=== PATIENT | male | born 1960 | race Caucasian/White ===

== ENCOUNTER 2023-01-11 16:47 | Inpatient (IN) | payer MEDICARE, OTHER ==
[~2023-01-11] VITALS: Ht 180 cm; Wt 79.8 kg
[~2023-01-11 16:47] MED LIST: ATEN25TA PO; ATOR20TA PO; GABA-532 PO; OMEP20CA15 PO
[2023-01-11 22:10] VITALS: BP 118/76; TEMP 98.4
[2023-01-11] MEDS ORDERED: MAGNESIUM HYDROXIDE 30 ML UDC PO PRN (22:30)
[2023-01-11] MEDS ORDERED: MAG HYDROX/AL HYDROX/SIMETH 30 ML UDC PO PRN (22:30)
[2023-01-11] MEDS ORDERED: LORAZEPAM 0.5 MG TABLET PO PRN (22:30)
[2023-01-11] MEDS ORDERED: ACETAMINOPHEN 325 MG TABLET PO PRN (22:30)
[2023-01-11] MEDS ORDERED: BLOOD SUGAR DIAGNOSTIC 1 EACH STRIP IN ONE (22:30)
[2023-01-12 07:40] LABS: ALBUMIN 3.1 g/dL (3.4-5.0); BILIRUBIN,TOTAL 0.4 mg/dL (0.2-1.0); CALCIUM, SERUM 8.8 mg/dL (8.5-10.1); CREATININE 0.9 mg/dL (0.6-1.3); POTASSIUM 3.6 mmol/L (3.5-5.1); TOTAL PROTEIN, SERUM 6.1 g/dL (6.4-8.2)
[2023-01-12 08:00] VITALS: BP 126/86; TEMP 97.9; O2SAT 96
[2023-01-12] MEDS ORDERED: OLAN20TA3 PO (08:05)
[2023-01-12] MEDS ORDERED: SILD20TA2 PO (08:05)
[2023-01-12] MEDS ORDERED: FLUT16SP (08:05)
[2023-01-12] MEDS ORDERED: DOCU-141 PO (08:05)
[2023-01-12] MEDS ORDERED: SERT50TA PO (08:05)
[2023-01-12] MEDS: LITHIUM CARBONATE (300 MG CAP) 300 MG CAPSULE PO SCH ×2 (11:16→16:11)
[2023-01-12] MEDS: SERTRALINE HCL 50 MG TABLET PO SCH (11:16)
[2023-01-12] MEDS ORDERED: FLUTICASONE PROPIONATE 16 GM BOTTLE NS PRN (13:30)
[2023-01-12 16:00] VITALS: BP 118/66; TEMP 97.5; O2SAT 98
[2023-01-12] MEDS: DOCUSATE SODIUM 100 MG CAPSULE PO PRN (16:11)
[2023-01-12 20:36] VITALS: BP 104/65; TEMP 98.1; O2SAT 97
[2023-01-12] MEDS: OLANZAPINE 10 MG TABLET PO SCH (21:07)
[2023-01-13 08:00] VITALS: BP 125/84; TEMP 97.9; O2SAT 96
[2023-01-13] MEDS: ATORVASTATIN 10 MG TABLET PO SCH (08:37)
[2023-01-13] MEDS: LITHIUM CARBONATE (300 MG CAP) 300 MG CAPSULE PO SCH ×2 (08:37→16:24)
[2023-01-13] MEDS: PANTOPRAZOLE 40 MG TABLET.DR PO SCH (08:37)
[2023-01-13] MEDS: SERTRALINE HCL 50 MG TABLET PO SCH (08:37)
[2023-01-13] MEDS: ATENOLOL 25 MG TABLET PO SCH (08:37)
[2023-01-13 16:00] VITALS: BP 95/64; TEMP 98; O2SAT 95
[2023-01-13 20:00] VITALS: BP 114/77; TEMP 98.4; O2SAT 97
[2023-01-13] MEDS: OLANZAPINE 10 MG TABLET PO SCH (21:12)
[2023-01-13] MEDS: ZOLPIDEM TARTRATE 5 MG TABLET PO PRN (21:33)
[2023-01-14 08:00] VITALS: BP 140/85; TEMP 98.6; O2SAT 94
[2023-01-14] MEDS: SERTRALINE HCL 50 MG TABLET PO SCH (08:37)
[2023-01-14] MEDS: LITHIUM CARBONATE (300 MG CAP) 300 MG CAPSULE PO SCH ×2 (08:39→16:23)
[2023-01-14] MEDS: ATORVASTATIN 10 MG TABLET PO SCH (08:39)
[2023-01-14] MEDS: ATENOLOL 25 MG TABLET PO SCH (08:39)
[2023-01-14] MEDS: PANTOPRAZOLE 40 MG TABLET.DR PO SCH (08:39)
[2023-01-14 16:00] VITALS: BP 111/75; TEMP 97.5; O2SAT 96
[2023-01-14 20:00] VITALS: BP 138/81; TEMP 98.3; O2SAT 95
[2023-01-14] MEDS: OLANZAPINE 10 MG TABLET PO SCH (21:36)
[2023-01-14] MEDS: ZOLPIDEM TARTRATE 5 MG TABLET PO PRN (22:45)
[2023-01-15 08:00] VITALS: BP 114/82; TEMP 98; O2SAT 95
[2023-01-15] MEDS: LITHIUM CARBONATE (300 MG CAP) 300 MG CAPSULE PO SCH ×2 (09:01→16:13)
[2023-01-15] MEDS: PANTOPRAZOLE 40 MG TABLET.DR PO SCH (09:02)
[2023-01-15] MEDS: SERTRALINE HCL 50 MG TABLET PO SCH (09:02)
[2023-01-15] MEDS: ATORVASTATIN 10 MG TABLET PO SCH (09:02)
[2023-01-15] MEDS: ATENOLOL 25 MG TABLET PO SCH (09:02)
[2023-01-15] MEDS: DOCUSATE SODIUM 100 MG CAPSULE PO PRN (09:02)
[2023-01-15] MEDS: OFLOXACIN 0.3% OPHTH 5 ML BOTTLE RIGHTEYE SCH ×3 (12:00→20:00)
[2023-01-15 16:00] VITALS: BP 106/63; TEMP 98.2; O2SAT 98
[2023-01-15 20:09] VITALS: BP 100/64; TEMP 98.2; O2SAT 96
[2023-01-15] MEDS: OLANZAPINE 10 MG TABLET PO SCH (21:22)
[2023-01-16] MEDS: OFLOXACIN 0.3% OPHTH 5 ML BOTTLE RIGHTEYE SCH ×3 (04:00→08:00)
[2023-01-16 08:00] VITALS: BP 105/71; TEMP 97.9; O2SAT 95
[2023-01-16] MEDS: LITHIUM CARBONATE (300 MG CAP) 300 MG CAPSULE PO SCH ×2 (08:15→17:32)
[2023-01-16] MEDS: PANTOPRAZOLE 40 MG TABLET.DR PO SCH (08:15)
[2023-01-16] MEDS: DOCUSATE SODIUM 100 MG CAPSULE PO PRN (08:22)
[2023-01-16] MEDS: SERTRALINE HCL 50 MG TABLET PO SCH (08:22)
[2023-01-16] MEDS: ATORVASTATIN 10 MG TABLET PO SCH (08:22)
[2023-01-16] MEDS: ATENOLOL 25 MG TABLET PO SCH (08:23)
[2023-01-16] MEDS ORDERED: NEO/POLY-B/DEXAM OPHTH SUSP 5 ML BOTTLE RIGHTEYE SCH (10:00)
[2023-01-16] MEDS: NEO/POLY/DEXA OPHTH OINT 3.5 GM TUBE RIGHTEYE SCH ×2 (13:25→17:32)
[2023-01-16 16:00] VITALS: BP 110/72; TEMP 98.1; O2SAT 99
[2023-01-16 20:00] VITALS: BP 100/64; TEMP 98.2; O2SAT 96
[2023-01-16] MEDS: OLANZAPINE 10 MG TABLET PO SCH (21:08)
[2023-01-16] MEDS: ZOLPIDEM TARTRATE 5 MG TABLET PO PRN (22:43)
[2023-01-17] MEDS: NEO/POLY/DEXA OPHTH OINT 3.5 GM TUBE RIGHTEYE SCH ×4 (00:43→17:34)
[2023-01-17 08:00] VITALS: BP 134/87; TEMP 97.9; O2SAT 99
[2023-01-17] MEDS: PANTOPRAZOLE 40 MG TABLET.DR PO SCH (08:14)
[2023-01-17] MEDS: SERTRALINE HCL 50 MG TABLET PO SCH (08:14)
[2023-01-17] MEDS: LITHIUM CARBONATE (300 MG CAP) 300 MG CAPSULE PO SCH ×2 (08:14→17:25)
[2023-01-17] MEDS: ATORVASTATIN 10 MG TABLET PO SCH (08:14)
[2023-01-17] MEDS: ATENOLOL 25 MG TABLET PO SCH (08:15)
[2023-01-17 16:00] VITALS: BP 106/74; TEMP 97.9; O2SAT 98
[2023-01-17 20:41] VITALS: BP 99/68; TEMP 98.1; O2SAT 96
[2023-01-17] MEDS: OLANZAPINE 10 MG TABLET PO SCH (21:12)
[2023-01-17] MEDS: ZOLPIDEM TARTRATE 5 MG TABLET PO PRN (21:13)
[2023-01-18] MEDS: NEO/POLY/DEXA OPHTH OINT 3.5 GM TUBE RIGHTEYE SCH ×3 (00:30→12:25)
[2023-01-18 08:00] VITALS: BP 125/90; TEMP 97.8; O2SAT 99
[2023-01-18] MEDS: LITHIUM CARBONATE (300 MG CAP) 300 MG CAPSULE PO SCH ×2 (08:15→16:23)
[2023-01-18] MEDS: ATORVASTATIN 10 MG TABLET PO SCH (08:15)
[2023-01-18] MEDS: SERTRALINE HCL 50 MG TABLET PO SCH (08:15)
[2023-01-18] MEDS: PANTOPRAZOLE 40 MG TABLET.DR PO SCH (08:15)
[2023-01-18] MEDS: ATENOLOL 25 MG TABLET PO SCH (08:16)
[2023-01-18 16:06] VITALS: BP 104/70; TEMP 98; O2SAT 95
== END 2023-01-18 17:15 | disposition home or self-care (01) | DRG 885 ==
LOC: GPS 21:54
PROVIDERS: ADMIT Psychiatry & Neurology Psychiatry; ATTEND Nurse Practitioner Acute Care
DX: F25.0 Schizoaffective disorder, bipolar type (principal); R45.851 Suicidal ideations; E44.1 Mild protein-calorie malnutrition; F29 Unspecified psychosis not due to a substance or known physiological condition; J44.9 Chronic obstructive pulmonary disease, unspecified; I10 Essential (primary) hypertension; F03.90 Unspecified dementia, unspecified severity, without behavioral disturbance, psychotic disturbance, mood disturbance, and anxiety; F60.9 Personality disorder, unspecified; Z79.899 Other long term (current) drug therapy; E78.5 Hyperlipidemia, unspecified; E88.09 Other disorders of plasma-protein metabolism, not elsewhere classified; R73.9 Hyperglycemia, unspecified; F41.9 Anxiety disorder, unspecified; Z72.0 Tobacco use; H10.9 Unspecified conjunctivitis
CPT/HCPCS: 36415; 80048-TC; 80053-TC; 80061-TC; 82962-TC; 87081-TC